=== PATIENT | male | born 1985 | race Caucasian/White ===

== ENCOUNTER 2024-01-04 19:43 | Emergency (ER) | payer SELFPAY ==
[~2024-01-04] VITALS: Ht 182.9 cm; Wt 113.4 kg
[2024-01-04] MEDS ORDERED: Ondansetron HCl 2 MG / ML 2ML Vial IV ONE (20:20)
[2024-01-04 20:25] LABS: BASOPHILS ABSOLUTE AUTO 0.07 K/mm3 (0.00-0.23); BASOPHILS PERCENT AUTO 1 % (0-2); EOSINOPHILS ABSOLUTE AUTO 0.04 K/mm3 (0.00-0.68); EOSINOPHILS PERCENT AUTO 1 % (0-6); Hemoglobin 14.9 g/dL (13.5-17.5); IMMATURE GRAN ABSOLUTE AUTO 0.01 K/mm3 (0.00-0.10); IMMATURE GRAN PERCENT AUTO 0 % (0-1); LYMPHOCYTES ABSOLUTE AUTO 1.76 K/mm3 (0.84-5.20); LYMPHOCYTES PERCENT AUTO 24 % (21-46); MONOCYTES ABSOLUTE AUTO 0.48 K/mm3 (0.16-1.47); MONOCYTES PERCENT AUTO 7 % (4-13); Mean Corpuscular HGB 33.6 pg (26.0-34.0); Mean Corpuscular HGB Conc 36.3 g/dL (31.5-36.5); Mean Corpuscular Volume 93 fL (80-100); Mean Platelet Volume 9.1 fL (9.1-12.4); NEUTROPHILS ABSOLUTE AUTO 5.03 K/mm3 (1.96-9.15); NEUTROPHILS PERCENT AUTO 68 % (41-73); Platelet Count 222 K/mm3 (150-400); RDW Coefficient Variation 12.3 % (11.7-14.2); RDW Standard Deviation 42.5 fL (35.1-46.3); Red Blood Cell Count 4.43 M/mm3 (4.30-5.90); White Blood Cell Count 7.39 K/mm3 (4.00-11.30)
[2024-01-04 20:50] LABS: Albumin, Blood 4.2 g/dL (3.4-5.0); Albumin/Globulin Ratio 1.2 (0.8-1.8); Bilirubin, Total 1.4 mg/dL (0.1-1.0); Bun/Creatinine Ratio 11.5 (12.0-20.0); Calcium, Blood 9.3 mg/dL (8.5-10.1); Creatinine, Blood 0.69 mg/dL (0.60-1.20); Globulin, Blood 3.4 g/dL (2.2-4.0); Potassium, Blood 3.6 mmol/L (3.5-5.5); Total Protein, Blood 7.6 g/dL (6.4-8.2)
[2024-01-04 22:50] LABS: Source, Urine Clean Catch
[2024-01-04 22:51] LABS: Bilirubin, Urine Neg (Neg); Blood, Urine Neg (Neg); Glucose Qualitative, Urine Neg (Neg); Ketones, Urine 4+ (Neg); Leukocyte Esterase, Urine Neg (Neg); Nitrite, Urine Neg (Neg); Protein, Urine 2+ (Neg); Urobilinogen, Urine NORM (Normal)
[2024-01-04 22:53] LABS: Appearance, Urine Clear (Clear); Color, Urine Yellow (P-Yellow)
[2024-01-04] MEDS ORDERED: Lactated Ringer's 1,000 ML IV SCH (22:55)
[2024-01-04 23:16] LABS: Amorphous Light (0-Heavy); Bacteria Few /hpf; Mucus Light (0-Heavy); Red Blood Cells, Urine Not Seen /hpf (0-2); Squamous Epithelial Cells Few /hpf (Few); White Blood Cells, Urine 0-2 /hpf (0-5)
[2024-01-05] MEDS ORDERED: Lactated Ringer's 1,000 ML IV SCH (00:10)
[2024-01-05] MEDS ORDERED: Ondansetron HCl 2 MG / ML 2ML Vial IV ONE (00:10)
[2024-01-05] MEDS ORDERED: PHENobarbital Sodium 65MG / ML 1ML Vial IV ONE (00:15)
== END 2024-01-05 02:49 | disposition home or self-care (01) ==
LOC: ER 19:43
PROVIDERS: Student in an Organized Health Care Education/Training Program
DX: F10.90 Alcohol use, unspecified, uncomplicated (principal); R11.2 Nausea with vomiting, unspecified; Z88.0 Allergy status to penicillin
CPT/HCPCS: 80053; 81001; 83690; 84484; 85025; 93005; 93010; 96361; 96374; 96375; 96376; 99284-25; J2405; J2560; J7120